=== PATIENT | male | born 1960 | race Caucasian/White ===

== ENCOUNTER 2017-07-24 11:24 | Emergency (ER) | payer MEDICARE ==
[2017-07-24] MEDS: DIPHTH/TET/ACEL PERTUSS (ADULT) 0.5 ML VIAL IM* (12:31)
[2017-07-24] MEDS: LIDOCAINE 1% (MDV) 20 ML INJ SC (13:21)
== END 2017-07-24 14:50 | disposition home or self-care (01) ==
LOC: FTE 11:24
DX: L02.11 Cutaneous abscess of neck (principal); Z23 Encounter for immunization; Z87.891 Personal history of nicotine dependence
CPT/HCPCS: 10061; 90471; 90715; 99284-25

== ENCOUNTER 2017-07-26 17:00 | Emergency (ER) | payer MEDICARE, OTHER ==
[2017-07-26] MEDS: IBUPROFEN 600 MG TAB PO (18:54)
[2017-07-26] MEDS: LIDOCAINE 1% (MDV) 10 ML INJ INFIL (19:35)
== END 2017-07-26 20:10 | disposition home or self-care (01) ==
LOC: E/R 17:00 → FTE 20:10
DX: L02.11 Cutaneous abscess of neck (principal)
CPT/HCPCS: 10061; 99284-25

== ENCOUNTER 2017-07-29 14:15 | Emergency (ER) | payer MEDICARE, OTHER | END 2017-07-29 15:16 | disposition home or self-care (01) | LOC: E/R 14:15 | DX: Z48.01 Encounter for change or removal of surgical wound dressing (principal) | CPT/HCPCS: 99281 ==